=== PATIENT | female | born 1940 | race Caucasian/White ===

== ENCOUNTER → 2017-10-07 | Outpatient (CLI) | payer MEDICARE, OTHER ==
[~2017-10-07] MED LIST: ALPR.5; ATORVASTATIN CA40 MG; ESCITALOPRAM OX10 MG; LEVSOD50; MIRT15 PO; OXYC5; PROM12.5S PR; PROM25 PO; Percocet 5-3251 EACH PO; SERT50 PO; UNKNOWN MEDS
[2017-10-08 13:27] LABS: Stool Occult Bld Immuno 1 Negative (NEGATIVE)
== END ==
LOC: LAB EV 15:30
PROVIDERS: Physician Assistant
DX: Z12.11 Encounter for screening for malignant neoplasm of colon (principal)
CPT/HCPCS: G0328

== ENCOUNTER → 2018-09-21 | Outpatient (CLI) | payer MEDICARE, OTHER | END | disposition home or self-care (01) | LOC: PLD 13:41 → LAB SHORT 13:41 | DX: D48.5 Neoplasm of uncertain behavior of skin (principal) | CPT/HCPCS: 88305 ==

== ENCOUNTER → 2019-01-12 | Outpatient (CLI) | payer MEDICARE, OTHER | END | disposition home or self-care (01) | LOC: LAB SHORT 13:28 → PLD 13:28 | DX: D36.7 Benign neoplasm of other specified sites (principal) | CPT/HCPCS: 88305 ==

== ENCOUNTER → 2019-10-04 | Outpatient (CLI) | payer MEDICARE, OTHER | END | disposition home or self-care (01) | LOC: LAB SHORT 07:48 → PLD 07:48 | DX: D48.5 Neoplasm of uncertain behavior of skin (principal) | CPT/HCPCS: 88305 ==

== ENCOUNTER 2020-02-13 09:53 | Inpatient (IN) | payer MEDICARE, OTHER ==
[~2020-02-13] VITALS: Ht 162.6 cm; Wt 67.6 kg
[~2020-02-13 09:53] MED LIST changes: -ALPR.5; -ATORVASTATIN CA40 MG; -LEVSOD50; -SERT50 PO
[2020-02-13 10:48] LABS: BASOPHILS ABSOLUTE AUTO 0.03 K/mm3 (0.00-0.23); BASOPHILS PERCENT AUTO 0 % (0-2); EOSINOPHILS ABSOLUTE AUTO 0.17 K/mm3 (0.00-0.68); EOSINOPHILS PERCENT AUTO 2 % (0-6); Hematocrit 47.8 % (33.0-51.0); Hemoglobin 15.7 g/dL (11.5-16.0); IMMATURE GRAN ABSOLUTE AUTO 0.03 K/mm3 (0.00-0.10); IMMATURE GRAN PERCENT AUTO 0 % (0-1); LYMPHOCYTES PERCENT AUTO 15 % (21-46); MONOCYTES PERCENT AUTO 5 % (4-13); Mean Corpuscular HGB 29.6 pg (26.0-34.0); Mean Corpuscular HGB Conc 32.8 g/dL (31.5-36.5); Mean Corpuscular Volume 90 fL (80-100); Mean Platelet Volume 10.6 fL (9.1-12.4); NEUTROPHILS ABSOLUTE AUTO 7.97 K/mm3 (1.96-9.15); NEUTROPHILS PERCENT AUTO 78 % (41-73); Platelet Count 270 K/mm3 (150-400); RDW Coefficient Variation 13.3 % (11.7-14.2); RDW Standard Deviation 44.5 fL (35.1-46.3)
[2020-02-13 11:09] LABS: Alanine Aminotransfer (ALT/SGP 49 U/L (12-78); Albumin, Blood 3.8 g/dL (3.4-5.0); Albumin/Globulin Ratio 1.1 (0.8-1.8); Alk Phos 167 U/L (50-136); Anion Gap 7 mmol/L (6-16); Aspartate Aminotrans (AST/SGOT 38 U/L (12-37); Bilirubin, Total 0.8 mg/dL (0.1-1.0); Blood Urea Nitrogen 17 mg/dL (8-24); CO2, Blood 26 mmol/L (21-32); Calcium, Blood 9.6 mg/dL (8.5-10.1); Chloride, Blood 108 mmol/L (98-108); Creatinine, Blood 0.71 mg/dL (0.40-1.00); Globulin, Blood 3.5 g/dL (2.2-4.0); Glomerular Filtration Rate >60 (60-); Glucose, Blood 107 mg/dL (70-99); Potassium, Blood 4.1 mmol/L (3.5-5.5); Sodium, Blood 141 mmol/L (136-145); Total Protein, Blood 7.3 g/dL (6.4-8.2); Troponin I <0.015 ng/mL (0.000-0.040)
[2020-02-13] MEDS ORDERED: ATORVASTATIN CA40 MG PO (12:26)
[2020-02-13] MEDS ORDERED: GABA100 PO (12:27)
[2020-02-13] MEDS ORDERED: SERT50 PO (12:28)
[2020-02-13] MEDS ORDERED: TRAZ50 PO (12:28)
[2020-02-13] MEDS ORDERED: ALPR.25 PO (12:28)
[2020-02-13] MEDS ORDERED: EUTHYROX50 MCG PO (12:29)
[2020-02-13] MEDS ORDERED: NEURONTIN300 MG PO (13:08)
--- NOTE | 2020-02-13 14:47 | NUR ---
PT ADMITTED. PT ADMITTED TO ROOM 330 AT 1312. PT ORIENTED TO ROOM. CALL LIGHT GIVEN TO PT & EXPLAINED. AT BEDSIDE. ICE CHIPS PROVIDED.
--- NOTE | 2020-02-13 16:57 | NUR ---
SHIFT SUMMARY PT ADMITTED THIS SHIFT. PT TREATED FOR PAIN ON ARIVAL. PT BECAME NAUSEOUS WITH MOVEMETN AND MEDICATED WITH ZOFRAN. WHEN DR. CHAMORRO CAME TO SEE PT, PT BECAME NAUSEATED AGAIN. OT PHENAGRAN ORDER GIVEN AND NEW ORDERS PLACED FOR NAUSEA. PT SCHEDULED TO HAVE MRI THIS SHIFT. LR RUNNING 100ML/HR. PT STATES PAIN IS MANAGABLE AT THIS TIME. WILL CONTINUE TO MONITOR FOR PAIN & NAUSEA. ICE CHIPS IN ROOM. VS REVIEWED. WILL CONTINUE TO MONITOR UNTIL TURNOVER IS COMPLETE.
--- NOTE | 2020-02-14 04:24 | NUR ---
SUMMARY: PT A/OX4, SPECIFIES NEEDS AND SBA IN ROOM. SHE'S ADMITTED TO FEELING BETTER AND HAS DENIED NAUSEA OR ABDO PAIN. NO PRN MEDS REQUIRED THIS SHIFT. PT REMAINS NPO EXCEPT ICE/MEDS ON LR AT 100 ML/HR. SCD'S IN PLACE. NO ACUTE CHANGES, VSS/AFEBRILE. WCTM AND REPORT TO DAY RN.
[2020-02-14 04:52] LABS: BASOPHILS ABSOLUTE AUTO 0.02 K/mm3 (0.00-0.23); BASOPHILS PERCENT AUTO 0 % (0-2); EOSINOPHILS ABSOLUTE AUTO 0.11 K/mm3 (0.00-0.68); EOSINOPHILS PERCENT AUTO 1 % (0-6); Hematocrit 42.1 % (33.0-51.0); Hemoglobin 13.6 g/dL (11.5-16.0); IMMATURE GRAN ABSOLUTE AUTO 0.02 K/mm3 (0.00-0.10); IMMATURE GRAN PERCENT AUTO 0 % (0-1); LYMPHOCYTES ABSOLUTE AUTO 2.07 K/mm3 (0.84-5.20); LYMPHOCYTES PERCENT AUTO 26 % (21-46); MONOCYTES ABSOLUTE AUTO 0.45 K/mm3 (0.16-1.47); MONOCYTES PERCENT AUTO 6 % (4-13); Mean Corpuscular HGB 29.5 pg (26.0-34.0); Mean Corpuscular HGB Conc 32.3 g/dL (31.5-36.5); Mean Corpuscular Volume 91 fL (80-100); Mean Platelet Volume 10.7 fL (9.1-12.4); NEUTROPHILS ABSOLUTE AUTO 5.17 K/mm3 (1.96-9.15); NEUTROPHILS PERCENT AUTO 66 % (41-73); Platelet Count 211 K/mm3 (150-400); RDW Coefficient Variation 13.2 % (11.7-14.2); RDW Standard Deviation 44.6 fL (35.1-46.3); Red Blood Cell Count 4.61 M/mm3 (3.80-5.20); White Blood Cell Count 7.84 K/mm3 (4.00-11.30)
[2020-02-14 05:16] LABS: Alanine Aminotransfer (ALT/SGP 420 U/L (12-78); Albumin/Globulin Ratio 1.1 (0.8-1.8); Alk Phos 195 U/L (50-136); Anion Gap 5 mmol/L (6-16); Aspartate Aminotrans (AST/SGOT 259 U/L (12-37); Bilirubin, Total 1.1 mg/dL (0.1-1.0); Blood Urea Nitrogen 11 mg/dL (8-24); Bun/Creatinine Ratio 15.4 (12.0-20.0); CO2, Blood 27 mmol/L (21-32); Calcium, Blood 8.9 mg/dL (8.5-10.1); Chloride, Blood 111 mmol/L (98-108); Creatinine, Blood 0.72 mg/dL (0.40-1.00); Globulin, Blood 2.8 g/dL (2.2-4.0); Glomerular Filtration Rate >60 (60-); Glucose, Blood 87 mg/dL (70-99); Magnesium, Blood 2.3 mg/dL (1.6-2.4); Phosphorus, Blood 2.8 mg/dL (2.5-4.9); Potassium, Blood 3.9 mmol/L (3.5-5.5); Sodium, Blood 143 mmol/L (136-145); Total Protein, Blood 5.8 g/dL (6.4-8.2)
[2020-02-14 09:38] LABS: Amylase, Blood 107 U/L (25-115)
--- NOTE | 2020-02-14 19:16 | NUR ---
SHIFT SUMMARY PT IS AOX2-3 BUT FORGETFUL. PT C/O ANXIETY AND MEDICATED X1 THIS SHIFT. PT ALSO C/O PAIN IN HER BACK AND MEDICATED X1 PER EMAR. ICE PACK ALSO APPLIED TO BACK. PT ADVANCED TO CLEAR LIQUID DIET AND C/O NAUSEA AND PAIN AFTER LUNCH. PT WALKED IN HALLS X2 THIS SHIFT. NEW IV INSERTED IN RIGHT FOREARM. PT EVALUATED PT THIS AM. PT IS IN BED, CALL LIGHT IN REACH, BED IN LOW POSITION.
[2020-02-15 05:38] LABS: BASOPHILS ABSOLUTE AUTO 0.04 K/mm3 (0.00-0.23); BASOPHILS PERCENT AUTO 1 % (0-2); EOSINOPHILS ABSOLUTE AUTO 0.14 K/mm3 (0.00-0.68); EOSINOPHILS PERCENT AUTO 2 % (0-6); Hematocrit 42.9 % (33.0-51.0); Hemoglobin 14.1 g/dL (11.5-16.0); IMMATURE GRAN ABSOLUTE AUTO 0.02 K/mm3 (0.00-0.10); IMMATURE GRAN PERCENT AUTO 0 % (0-1); LYMPHOCYTES ABSOLUTE AUTO 1.93 K/mm3 (0.84-5.20); LYMPHOCYTES PERCENT AUTO 24 % (21-46); MONOCYTES PERCENT AUTO 6 % (4-13); Mean Corpuscular HGB Conc 32.9 g/dL (31.5-36.5); Mean Corpuscular Volume 91 fL (80-100); Mean Platelet Volume 10.8 fL (9.1-12.4); NEUTROPHILS ABSOLUTE AUTO 5.57 K/mm3 (1.96-9.15); NEUTROPHILS PERCENT AUTO 68 % (41-73); Platelet Count 211 K/mm3 (150-400); RDW Coefficient Variation 13.2 % (11.7-14.2); RDW Standard Deviation 43.9 fL (35.1-46.3)
[2020-02-15 05:52] LABS: Alanine Aminotransfer (ALT/SGP 253 U/L (12-78); Albumin, Blood 3.3 g/dL (3.4-5.0); Albumin/Globulin Ratio 1.1 (0.8-1.8); Alk Phos 172 U/L (50-136); Anion Gap 5 mmol/L (6-16); Aspartate Aminotrans (AST/SGOT 86 U/L (12-37); Bilirubin, Total 1.2 mg/dL (0.1-1.0); Blood Urea Nitrogen 10 mg/dL (8-24); Bun/Creatinine Ratio 13.8 (12.0-20.0); CO2, Blood 27 mmol/L (21-32); Calcium, Blood 8.9 mg/dL (8.5-10.1); Chloride, Blood 111 mmol/L (98-108); Creatinine, Blood 0.73 mg/dL (0.40-1.00); Glomerular Filtration Rate >60 (60-); Glucose, Blood 98 mg/dL (70-99); Potassium, Blood 3.8 mmol/L (3.5-5.5); Sodium, Blood 143 mmol/L (136-145); Total Protein, Blood 6.3 g/dL (6.4-8.2)
--- NOTE | 2020-02-15 06:12 | NUR ---
SUMMARY: A/OX4, INDEPENDENT IN ROOM AND KNOWS TO CALL FOR ASSIST PRN. SHE'S DENIED NAUSEA/ABDO PAIN AND ONLY REQUIRED PRN FENTANYL FOR CHRONIC BACK PAIN. SHE ALSO ALTERNATES ICE/HEAT TO REGION. LR INFUSES AT 75 ML/HR AND MIRILAX RX'D AND RECIEVED FOR PT C/O CONSTIPATION. PT SEEMS TO BE TOLERATING CL DIET AND HAS DENIED GI SYMPTOMS THIS SHIFT. SHE IS HOPEFULL TO GO HOME TODAY AND IS A PROBABLE D/C. NO ACUTE CHANGES, VSS AND AFEBRILE. WCTM/REPORT TO DAY RN.
[2020-02-15 07:13] LABS: C-REACTIVE PROTEIN, EXT RANGE 1.1 mg/dL (0.000-0.300)
[2020-02-15] MEDS ORDERED: GAVILAX17 GM PO (11:07)
--- NOTE | 2020-02-15 11:51 | NUR ---
DISCHARGE SUMMARY PT A/O X4 AND IND IN THE ROOM. PT MET WITH CAN PATCHER PRIOR TO DISCHARGE TO DISCUSS POST PANCREATITIS DIET. EDUCATION ABOUT PANCREATITIS AND PANCREATITIS DIET GIVEN TO PT AT DISCHARGE. PT DISCHARGED HOME AT 1124.
== END 2020-02-15 11:30 | disposition home or self-care (01) | DRG 440 ==
LOC: ER 09:53 → MEDS 12:15
PROVIDERS: Emergency Medicine; ADMIT Hospitalist
DX: K85.30 Drug induced acute pancreatitis without necrosis or infection (principal); T43.225A Adverse effect of selective serotonin reuptake inhibitors, initial encounter; E03.9 Hypothyroidism, unspecified; E78.5 Hyperlipidemia, unspecified; F32.9 Major depressive disorder, single episode, unspecified; F41.9 Anxiety disorder, unspecified; G89.4 Chronic pain syndrome; G47.00 Insomnia, unspecified; M51.16 Intervertebral disc disorders with radiculopathy, lumbar region
CPT/HCPCS: 36415; 71045; 74181; 80053; 82150; 83690; 83735; 83880; 84100; 84484; 85025; 86140; 93005; 93010; 96374; 96375; 96376; 97116; 97161; 99285-25; A9270-GY; J1170; J1650; J2405; J2550; J3010; J7030; J7120

== ENCOUNTER 2020-09-26 10:05 | Day surgery (SDC) | payer MEDICARE, BC ==
[~2020-09-26] VITALS: Ht 162.6 cm; Wt 64.9 kg
[~2020-09-26 10:05] MED LIST changes: +ALPR.25 PO; +ATORVASTATIN CA40 MG PO; +EUTHYROX50 MCG PO; +GABA100 PO; +GAVILAX17 GM PO; +NEURONTIN300 MG PO; +SERT50 PO; +TRAZ50 PO
--- NOTE | 2020-09-26 11:50 | NUR ---
09/26/20 1150 Zamzam Mariscal PT STATES NO PAIN LYING ON LEFT LATERAL SIDE FOLLOWING THE PROCEDURE
== END 2020-09-26 11:56 | disposition home or self-care (01) ==
LOC: ORSCSDS 10:05
PROVIDERS: Anesthesiology
PROC: 3E0R33Z Introduction of Anti-inflammatory into Spinal Canal, Percutaneous Approach (ICD-10-PCS; principal; 2020-09-26 11:15)
DX: M54.16 Radiculopathy, lumbar region (principal); M54.5 Low back pain; E78.00 Pure hypercholesterolemia, unspecified; K21.9 Gastro-esophageal reflux disease without esophagitis; E03.9 Hypothyroidism, unspecified; Z79.899 Other long term (current) drug therapy
CPT/HCPCS: J1040

== ENCOUNTER 2020-10-18 09:14 | Emergency (ER) | payer MEDICARE, BC ==
[~2020-10-18] VITALS: Ht 162.6 cm; Wt 64.4 kg
[2020-10-18 10:55] LABS: BASOPHILS ABSOLUTE AUTO 0.03 K/mm3 (0.00-0.23); BASOPHILS PERCENT AUTO 0 % (0-2); EOSINOPHILS ABSOLUTE AUTO 0.17 K/mm3 (0.00-0.68); EOSINOPHILS PERCENT AUTO 2 % (0-6); Hemoglobin 14.4 g/dL (11.5-16.0); IMMATURE GRAN ABSOLUTE AUTO 0.02 K/mm3 (0.00-0.10); IMMATURE GRAN PERCENT AUTO 0 % (0-1); LYMPHOCYTES ABSOLUTE AUTO 1.53 K/mm3 (0.84-5.20); LYMPHOCYTES PERCENT AUTO 18 % (21-46); MONOCYTES ABSOLUTE AUTO 0.58 K/mm3 (0.16-1.47); MONOCYTES PERCENT AUTO 7 % (4-13); Mean Corpuscular HGB Conc 32.7 g/dL (31.5-36.5); Mean Corpuscular Volume 92 fL (80-100); Mean Platelet Volume 10.6 fL (9.1-12.4); NEUTROPHILS ABSOLUTE AUTO 6.22 K/mm3 (1.96-9.15); NEUTROPHILS PERCENT AUTO 73 % (41-73); Platelet Count 219 K/mm3 (150-400); RDW Coefficient Variation 13.8 % (11.7-14.2); RDW Standard Deviation 47.2 fL (35.1-46.3); White Blood Cell Count 8.55 K/mm3 (4.00-11.30)
[2020-10-18 11:17] LABS: Alanine Aminotransfer (ALT/SGP 34 U/L (12-78); Albumin, Blood 3.4 g/dL (3.4-5.0); Alk Phos 122 U/L (50-136); Anion Gap 2 mmol/L (6-16); Aspartate Aminotrans (AST/SGOT 16 U/L (12-37); Bilirubin, Total 0.7 mg/dL (0.1-1.0); Blood Urea Nitrogen 17 mg/dL (8-24); Bun/Creatinine Ratio 21.2 (12.0-20.0); CO2, Blood 29 mmol/L (21-32); Calcium, Blood 9.5 mg/dL (8.5-10.1); Chloride, Blood 111 mmol/L (98-108); Globulin, Blood 3.4 g/dL (2.2-4.0); Glomerular Filtration Rate >60 (60-); Glucose, Blood 68 mg/dL (70-99); Potassium, Blood 4.7 mmol/L (3.5-5.5); Sodium, Blood 142 mmol/L (136-145); Total Protein, Blood 6.8 g/dL (6.4-8.2)
[2020-10-18 11:25] LABS: Troponin I <0.015 ng/mL (0.000-0.040)
[2020-10-18 11:36] LABS: Source, Urine Voided
[2020-10-18 11:42] LABS: Appearance, Urine Clear (Clear); Bilirubin, Urine Neg (Neg); Blood, Urine Neg (Neg); Color, Urine Yellow (P-Yellow); Glucose Qualitative, Urine Neg (Neg); Ketones, Urine Neg (Neg); Leukocyte Esterase, Urine 2+ (Neg); Nitrite, Urine Neg (Neg); Protein, Urine Neg (Neg); Urobilinogen, Urine NORM (Normal)
[2020-10-18 11:56] LABS: Calcium Oxalate Crystals Few /hpf
[2020-10-18 11:58] LABS: Bacteria Not Seen /hpf; Squamous Epithelial Cells Rare /hpf (Few)
[2020-10-18 11:59] LABS: Mucus Light (0-Heavy); Red Blood Cells, Urine 0-2 /hpf (0-2)
== END 2020-10-18 14:41 | disposition home or self-care (01) ==
LOC: ER 09:14
PROVIDERS: Emergency Medicine
DX: R53.1 Weakness (principal); R06.00 Dyspnea, unspecified; R42 Dizziness and giddiness; Z79.899 Other long term (current) drug therapy
CPT/HCPCS: 36415; 71046; 80053; 81001; 83880; 84443; 84484; 85025; 93005; 93010; 96374; 99284-25; J2405

== ENCOUNTER → 2022-01-28 | Outpatient (CLI) | payer MEDICARE, BC | LOC: LAB SHORT 09:00 → LAB 09:00 → LAB SHORT 01-29 09:00 | DX: R10.9 Unspecified abdominal pain (principal) | CPT/HCPCS: 87338 ==

== ENCOUNTER 2024-10-21 11:08 | Day surgery (SDC) | payer MEDICARE, BC ==
[2024-10-21] VITALS (8 sets, daily range): BP systolic 134–152; BP diastolic 62–116
[~2024-10-21] VITALS: Ht 162.6 cm; Wt 63.6 kg
[~2024-10-21 11:08] MED LIST changes: +Cymbalta20 MG PO; +Hydroxyzine HCl25 MG PO; +MULVITA PO; +TOCO1000 PO; +TRAM50 PO; +VITAMIN D310 MC5 PO
[2024-10-21] MEDS ORDERED: Lactated Ringer's 1,000 ML IV SCH (11:25)
[2024-10-21] MEDS ORDERED: CeFAZolin Sodium 2,000 MG in NS 100 ML IV SCH (11:25)
[2024-10-21] MEDS ORDERED: CeFAZolin Sodium 2,000 MG VIAL ONE (11:42)
--- NOTE | 2024-10-21 12:10 | NUR ---
Ambulatory in Day Surgery History, Chart, Medications and Allergies reviewed before start of procedure. Pre-Op teaching done. Pt verbalizes understanding. Patient States Post-Procedure ride home has been arranged.
[2024-10-21] MEDS ORDERED: Bupivacaine 0.5% HCl 5 MG/ML 30MLVIAL ONE (13:09)
[2024-10-21] MEDS ORDERED: FentaNYL Citrate 50 MCG/ML 2 ML Injection ONE (13:12)
[2024-10-21] MEDS ORDERED: propofoL 20 ML IV ONE (13:12)
[2024-10-21] MEDS ORDERED: Ondansetron HCl 2 MG / ML 2ML Vial ONE (13:26)
[2024-10-21] MEDS ORDERED: Dexamethasone Sod Phos 10 MG/ML 1ML VIAL ONE (13:26)
[2024-10-21] MEDS ORDERED: Metoclopramide HCl 5MG / ML 2ML Vial IV PRN (13:40)
[2024-10-21] MEDS ORDERED: FentaNYL Citrate 50 MCG/ML 2 ML Injection IV PRN ×3 (13:40)
[2024-10-21] MEDS ORDERED: HYDROmorphone HCl/Pf 1MG SYR IV PRN (13:40)
[2024-10-21] MEDS ORDERED: Droperidol 5 mg/2 ml Vial IV PRN (13:40)
[2024-10-21] MEDS ORDERED: HYDROcodone 5-APAP 325 TAB PO PRN (14:55)
--- NOTE | 2024-10-21 15:56 | NUR ---
PT AXOX4, CAN REPOSITION SELF IN BED. HAS BREAST BINDER ON, INCISION SITE ON R BREAST HAS STERI STRIPS AND 4X4 SURGICAL GAUZE THAT ARE CDI. PT TOLERATING PO FLUIDS, STATES 1/ "PRESSURE PAIN" PRESENT BUT REFUSES PO PAIN MEDICATION. PT STEADY ON FEET, AMBULATES WITH STEADY GAIT, REQUESTING TO DC HOME. ALL BELONGINGS RETURNED TO PATIENT. PT DC'D FROM STEPDOWN IN WC.
== END 2024-10-21 23:00 | disposition home or self-care (01) ==
LOC: ORSCMMR 11:08 → ORD 12:30 → ORSCMMR 12:30
PROVIDERS: Surgery
PROC: 0HBT0ZZ Excision of Right Breast, Open Approach (ICD-10-PCS; principal; 2024-10-21 12:30)
DX: C50.411 Malignant neoplasm of upper-outer quadrant of right female breast (principal); Z17.1 Estrogen receptor negative status [ER-]; Z17.22 Progesterone receptor negative status; Z17.32 Human epidermal growth factor receptor 2 negative status; K21.9 Gastro-esophageal reflux disease without esophagitis; Z79.899 Other long term (current) drug therapy
CPT/HCPCS: 88305; 88307; J0690; J1100; J2405; J2704; J3010; J7120

== ENCOUNTER 2024-11-20 09:52 | Emergency (ER) | payer MEDICARE, BC ==
[~2024-11-20] VITALS: Ht 162.6 cm; Wt 65.3 kg
[2024-11-20 09:59] VITALS: BP 108/71
== END 2024-11-20 10:18 | disposition home or self-care (01) ==
LOC: ER 09:52
DX: S41.112A Laceration without foreign body of left upper arm, initial encounter (principal); W29.8XXA Contact with other powered hand tools and household machinery, initial encounter; E03.9 Hypothyroidism, unspecified; E78.5 Hyperlipidemia, unspecified; Z88.5 Allergy status to narcotic agent; Z88.8 Allergy status to other drugs, medicaments and biological substances; Z79.890 Hormone replacement therapy; Z79.899 Other long term (current) drug therapy
CPT/HCPCS: 99282

== ENCOUNTER 2024-12-13 03:25 | Emergency (ER) | payer MEDICARE, BC ==
[~2024-12-13] VITALS: Ht 162.6 cm; Wt 63.5 kg
[2024-12-13 03:32] VITALS: BP 129/101
== END 2024-12-13 06:52 | disposition home or self-care (01) ==
LOC: ER 03:25
DX: S51.812A Laceration without foreign body of left forearm, initial encounter (principal); F45.8 Other somatoform disorders; E03.9 Hypothyroidism, unspecified; E78.5 Hyperlipidemia, unspecified; Z88.5 Allergy status to narcotic agent; Z79.890 Hormone replacement therapy; Z79.899 Other long term (current) drug therapy; X58.XXXA Exposure to other specified factors, initial encounter
CPT/HCPCS: 90471; 90715; 99282-25